=== PATIENT | female | born 1995 | race African-American/Black ===

== ENCOUNTER 2017-08-01 02:46 | Inpatient (IN) | payer OTHER ==
[2017-08-01] VITALS (24 sets, daily range): BP systolic 91–128; BP diastolic 53–83
[~2017-08-01] VITALS: Ht 167.6 cm; Wt 48.7 kg
[2017-08-01] MEDS ORDERED: NIFEdipine 10 MG CAP PO ONE (04:00)
[2017-08-01] MEDS ORDERED: PRENTAB9 PO (04:02)
[2017-08-01] MEDS ORDERED: IRON65TA PO (04:03)
[2017-08-01 04:06] LABS: MEAN CORPUSCULAR HEMOGLOBIN 30.6 pg (27.0-33.0); MEAN CORPUSCULAR HGB CONC 33.7 g/dl (32.0-36.5); MEAN CORPUSCULAR VOLUME 90.6 fl (80.0-96.0); PLATELET COUNT, AUTOMATED 177 10^3/uL (150-450); RED CELL DISTRIBUTION WIDTH 12.8 % (11.5-14.5); WHITE BLOOD COUNT 11.5 10^3/uL (4.0-10.0)
[2017-08-01] MEDS ORDERED: PENICILLIN G POTASSIUM IV 5 MU in D5W MINI-BAG PLUS 100 ML IV STA (04:12)
[2017-08-01] MEDS: BETAMETHASONE SOLUSPAN 6MG/ML INJ 5ML (J0702) IM SCH ×2 (04:13→11:26)
[2017-08-01] MEDS: NIFEdipine 10 MG CAP PO SCH ×3 (07:51→16:41)
[2017-08-01] MEDS: PENICILLIN G POTASSIUM IV 2.5 MU in APPROPRIATE DILUENT 1 EA IV SCH ×4 (07:52→21:07)
[2017-08-01] MEDS ORDERED: MAGNESIUM SULFATE 4% INJ 20GM/500ML (40MG/ML) (J3475) As Ordered ONE (10:58)
[2017-08-01] MEDS ORDERED: MAGNESIUM *L&D* 4 GM/100 ML BAG (40MG/ML) (J3475) As Ordered ONE (10:58)
[2017-08-01] MEDS: MAG Sulf (OBGYN) 20GM/500ML 20,000 MG in APPROPRIATE DILUENT 1 EA IV SCH ×2 (11:30→22:45)
[2017-08-01] MEDS ORDERED: MAGNESIUM *L&D* 4 GM/100 ML BAG (40MG/ML) (J3475) IV ONE (11:30)
[2017-08-01] MEDS: LR 1,000 ML IV SCH ×2 (12:55→19:27)
--- NOTE | 2017-08-01 14:57 | REP ---
OB ULTRASOUND: Real-time sonographic evaluation of the gravid uterus is performed. There is a single living intrauterine gestation. Estimated gestational age is 30 weeks 3 days, EDC 10/07/2017. Today's measurements indicate somewhat suboptimal growth. BPD 74 mm = 29 weeks 6 days, 39th percentile HC 266 mm = 29 weeks 0 days, 19th percentile AC 232 mm = 27 weeks 4 days, less than 5th percentile Femur length 55 mm = 29 weeks 0 days, 20th percentile HC/AC ratio 1.15 within normal range. Estimated weight 1205 grams, less than 3rd percentile. heart rate 136 beats per minute. Amniotic fluid within normal limits. GUERO is 10.2, within normal range of 8.9-23.6. Four chamber heart, ventricular outflow tracts, stomach, cord insertion, three vessel cord, kidneys, bladder and spine are visualized and are grossly unremarkable. position are vertex. Placenta posterior and grade 2 with no previa or abruption. Transvaginally no measurable cervix is seen with the membrane draped across the internal cervical os, with 0 cm of closed cervix. Signed by Arturo Egan MD 08/01/2017 04:17 P
[2017-08-01] MEDS ORDERED: OXYTOCIN DRIP 30 UNITS in APPROPRIATE DILUENT 1 EA IV SCH (17:15)
[2017-08-01] MEDS ORDERED: ACETAMINOPHEN 500 MG TAB PO ONE (18:00)
[2017-08-01 23:05] LABS: CORD GAS ABE V -2.7; CORD GAS HCO3 V 22.4 MEQ/L; CORD GAS O2 SAT V 58.2 %; CORD GAS PCO2 V 40.2 mmHg; CORD GAS PH V 7.364 UNITS; CORD GAS PO2 V 22.9 mmHg; CORD GAS SBC V 21.3 MEQ/L; CORD GAS TCO2 V 23.6 MEQ/L
[2017-08-01 23:06] LABS: CORD GAS ABE A -5.6; CORD GAS HCO3 A 19.6 MEQ/L; CORD GAS O2 SAT A 54.7 %; CORD GAS PCO2 A 37.7 mmHg; CORD GAS PH A 7.334 UNITS; CORD GAS PO2 A 22.9 mmHg; CORD GAS SBC A 18.9 MEQ/L; CORD GAS TCO2 A 20.8 MEQ/L
[2017-08-01] MEDS ORDERED: ACETAMINOPHEN 500 MG TAB PO PRN (23:30)
[2017-08-01] MEDS ORDERED: IBUPROFEN 800 MG TAB PO PRN (23:30)
[2017-08-01] MEDS ORDERED: METHYLERGONOVINE MALEATE 0.2 MG TAB PO PRN (23:30)
[2017-08-01] MEDS ORDERED: ANUSOL HC CREAM 30GM TOP PRN (23:30)
[2017-08-01] MEDS ORDERED: DIBUCAINE 1% OINTMENT 30GM TOP PRN (23:30)
[2017-08-01] MEDS ORDERED: DOCUSATE SODIUM 100 MG CAP PO PRN (23:30)
[2017-08-01] MEDS ORDERED: MEASLES,MUMPS,RUBELLA VACCINE INJ (MMR-II) (90707) SC SCH (23:30)
[2017-08-01] MEDS ORDERED: RHOGAM 300 MCG (1500 IU) INJ (J2790) IM SCH (23:30)
[2017-08-02 00:20] VITALS: BP 98/56
[2017-08-02] MEDS: PENICILLIN G POTASSIUM IV 2.5 MU in APPROPRIATE DILUENT 1 EA IV SCH (00:30)
[2017-08-02] MEDS: LR 1,000 ML IV SCH (03:27)
[2017-08-02 06:00] VITALS: BP 109/57
[2017-08-02 07:04] LABS: MEAN CORPUSCULAR HEMOGLOBIN 31.2 pg (27.0-33.0); MEAN CORPUSCULAR VOLUME 89.2 fl (80.0-96.0); PLATELET COUNT, AUTOMATED 190 10^3/uL (150-450); RED CELL DISTRIBUTION WIDTH 12.9 % (11.5-14.5); WHITE BLOOD COUNT 25.2 10^3/uL (4.0-10.0)
[2017-08-02] MEDS ORDERED: DIBU1OIN TOP (08:05)
[2017-08-02] MEDS ORDERED: IBUP-1022 PO (08:05)
[2017-08-02] MEDS ORDERED: ANUS2.5C2 TOP (08:05)
[2017-08-02] MEDS ORDERED: ACET50TA PO (08:05)
[2017-08-02] MEDS ORDERED: COLA100C5 PO (08:05)
[2017-08-02] MEDS ORDERED: PRENATAL VITAMINS CHEWABLE TABLET PO SCH (09:00)
--- NOTE | 2017-08-02 16:26 | DN ---
DATE: 08/01/2017 This is a 21-year-old 1, para 0 who is now para 1, who was seen at 30 and 3 weeks of gestation, presented to triage with cramping and spotting post intercourse starting at 2000 hours the evening before. She denies any loss of fluid and good active movements. She was told that she has a shortened cervix before, and on evaluating her chart, it said it was 2.7 cm. When she came in, she was noted to have contractions that were several minutes apart. There is moderate variability. No decelerations were noted over a 10-minute period. On vaginal examination, she was found to be 175%, high and intact vertex was presenting. She had labs drawn. She was given nifedipine for the contractions. She was given steroids for enhancement of lung maturity, and because of group B streptococcus (GBS) status unknown, was started on antibiotic therapy. She then subsequently went and had an ultrasound which showed that there was no evidence of cervix. On evaluation of transabdominal, there seemed to be cervix but on the transvaginal, there was just bulging membranes and there was zero cervix with a vertex presenting. The estimated weight was 1205 grams. heart is 136. Amniotic fluid index (GUERO) was normal limits 10.2. Placenta was grade 2 with no previa noted, and she had bulging membranes at that time. Consultation was made with [facility] at [place] with Dr. Raza, and because she was fully dilated with bulging membranes, he felt that transport at this time of an unstable patient, the better option would be to deliver the patient and have the intensive care unit (NICU) from [place] come and scrap picker the baby. We went ahead and made sure that she had neuro prophylaxis with 4 grams of magnesium, followed by 1 gram an hour. She was given her full dose of antibiotics because of GBS status unknown. She had her full course of steroids. We consulted neonatology here which suggested that we keep the baby in as long as possible; however, she was raya and she was fully dilated. The patient was raya in the irregularly at time and she was started on Pitocin, rapidly felt pelvic pressure, and subsequently had a spontaneous vaginal delivery over an intact perineum of a live male infant weighing 3 pounds 7 ounces, 1464 grams, of 7 and 8 at one and five minutes respectively. The arterial pH was 7.33, base excess was -5.6, venous pH is 7.36, base excess of -2.7. Baby was transferred to the NICU for evaluation and monitoring and [facility] was called and a team was on the way to scrap picker the baby. The placenta delivered spontaneously thereafter. Three-vessel cord, membranes and tissues intact. There seemed to be a rim suggestive of abruption of the placenta; however, the placenta came out intact. The uterus contracted well down on Pitocin. The patient's perineum, vagina and rectal sphincter were all intact. In summary, we have a patient at 30 weeks and 3 days admitted fully dilated with antepartum bleeding, delivered a live male infant to be followed up with [facility], and she will be discharged tomorrow to go to [place] to be with her baby.
--- NOTE | 2017-08-02 20:07 | DSES ---
DATE OF ADMISSION: 08/01/2017 DATE OF DISCHARGE: 08/02/2017 21-year-old 1 at 30 and 3 weeks of gestation, presented the evening prior to delivery with a history of having intercourse, had vaginal bleeding and contractions. No loss of fluid and adequate movements. She was diagnosed with a short cervix which was less than 3 centimeters, it was 2.57. There was no other issues except for her anemia. While she was in hospital, there was continuous monitoring, showed some contractions, she had some bleeding. There was a reassuring category one strip. On admission she was noted to be 1 cm, 75%, high and intact. She subsequently had an ultrasound which showed vertex presenting at 30 weeks and 3 days with an GUERO of 10.2, grade 2 placenta, a cervix which was completely dilated with bulging membranes. This was based on a transvaginal ultrasound. Consultation was made with perinatologists who recommended that because she was fully dilated and having contractions that it would be unadvisable to transfer her as she had potential of delivering in the ambulance and therefore the second option of a vaginal delivery in [facility] with the transport coming to flower picker the baby was the optimizing plan. This was discussed with Dr. Raza. In the process of preparing this lady for a vaginal delivery, she had two lots of steroids, she has covered for GBS status unknown. She was given nifedipine to reduce the contractility until the two doses of steroids were complete. She was put on magnesium sulfate for neurologic prophylaxis and once that was all accomplished the nifedipine was discontinued. She subsequently went on to deliver a live male , 3 pounds 7 ounces, 1464 grams, scores of 7 and 8 at 1 and 5 minutes respectively. Arterial pH was 7.33, base excess was -5.6, venous pH was 7.36, base excess was -2.7. Baby was transferred to the NICU under the care of Dr. Pelaez. Her admitting hemoglobin 11.0, hematocrit 32.6 and platelets were 177. Discharge hemoglobin was 9.8, hematocrit 28.8 and platelets were 190. Her blood pressure on discharge was 109/57, respirations are 16, pulse is 90 and temperature is 98.3. On examination today she is in no acute distress. Symphysis fundus height is two below the uterus. Four quadrant bowel sounds are noted. Perineum is intact and healing and there is minimal discharge. She has no evidence of DVT, PE or superficial phlebitis. Chest is clear bilaterally to bases. No wheezes or rhonchi and no CVA tenderness. She is not complaining of nausea, vomiting, diarrhea or constipation. No urge incontinence. No frequency. No premenstrual cramps. She was given her medications for discharge. She is planning on going to [place] today and will followup in the office in 2-3 weeks time.
== END 2017-08-02 09:10 | disposition home or self-care (01) | DRG 775 ==
LOC: M LDO 02:46 → M LDI 11:20 → M OBS 08-02
PROVIDERS: ADMIT Obstetrics & Gynecology; ATTEND Obstetrics & Gynecology
PROC: 10E0XZZ Delivery of Products of Conception, External Approach (ICD-10-PCS; principal; 2017-08-01)
PROC: 10907ZC Drainage of Amniotic Fluid, Therapeutic from Products of Conception, Via Natural or Artificial Opening (ICD-10-PCS; 2017-08-01)
DX: O60.14X0 Preterm labor third trimester with preterm delivery third trimester, not applicable or unspecified (principal); Z37.0 Single live birth; Z79.899 Other long term (current) drug therapy; Z3A.30 30 weeks gestation of pregnancy; D64.9 Anemia, unspecified; O99.02 Anemia complicating childbirth

== ENCOUNTER → 2017-11-24 | Outpatient (REF) | payer OTHER | LOC: M SFHCLERA 14:32 | DX: R30.0 Dysuria (principal) | CPT/HCPCS: 87086 ==